=== PATIENT | female | born 1950 | race Caucasian/White ===

== ENCOUNTER 2019-03-14 15:21 | Inpatient (IN) ==
[2019-03-14] MEDS ORDERED: ASPIRIN PO ONE ×2 (15:32→20:03)
[2019-03-14 16:02] LABS: BASO# 0.06 X1000 (0.0-0.2); BASO% 0.6 % (0.0-0.8); EOS# 0.14 X1000 (0.0-0.7); EOS% 1.4 % (0.0-10.0); HEMATOCRIT 38.9 % (37.0-47.0); HEMOGLOBIN 13.4 g/dL (12.0-16.0); IMM GRAN# 0.19 X1000 (0.0-0.04); IMM GRAN% 1.9 % (0.0-0.5); LYMPH# 0.49 X1000 (1.2-3.4); LYMPH% 4.9 % (20.5-51.1); MCH 31.1 PG (27-31); MCHC 34.4 g/dL (33-37); MCV 90.3 FL (81-99); MONO# 1.04 X1000 (0.11-0.59); MONO% 10.5 % (1.7-9.3); MPV 11.6 FL (7.4-10.4); NEUT% 80.7 % (42.2-75.2); PLT 228 X1000 (130-400); RBC 4.31 XMIL (4.2-5.4); RDW 13.6 % (11.5-14.5); WBC 9.92 X1000 (4.8-10.8)
--- NOTE | 2019-03-14 16:09 | Diag Imaging Result Doc PS360 ---
EXAM: CHEST-2 VIEWS 03/14/2019 HISTORY: CHEST PAIN TECHNIQUE: PA and lateral chest COMMENT: The heart size and pulmonary vascularity are within normal limits. There is some ill-defined opacity present in the right lower lobe and linear opacity in the retrocardiac region of the left lower lobe. There are no previous studies available for comparison. IMPRESSION: Bibasilar atelectasis. Electronically signed by Justin Velasquez 03/14/2019 4:07 PM
[2019-03-14 16:17] LABS: INR 0.97; PROTIME 13.4 Seconds (11.0-16.0)
[2019-03-14 16:18] LABS: PTT 37.1 Seconds (22.3-41.8)
[2019-03-14 16:22] LABS: AGAP 11; ALBUMIN 3.6 g/dL (3.5-5.0); ALKALINE PHOSPHATASE 88 U/L (32-104); BUN 8 mg/dL (8-22); CALCIUM 8.7 mg/dL (8.8-10.2); CHLORIDE 95 mmol/L (98-107); CK PROFILE 13 U/L (24-173); COSMO 270; CREATININE 0.4 mg/dL (0.5-0.9); ESTIMATED GFR > 60; GLUCOSE 134 mg/dL (70-104); GOT 16 U/L (10-30); GPT 9 U/L (10-36); POTASSIUM 3.6 mmol/L (3.5-5.1); SODIUM 135 mmol/L (136-145); TCO2 29 mmol/L (25-35); TOTAL PROTEIN 7.1 g/dL (6.3-8.3)
--- NOTE | 2019-03-14 16:35 | EKG Report ---
Test Performed on : 03/14/2019 3:40:25 PM Test Reason : CHEST PAIN Blood Pressure : / mmHG Vent. Rate : 118 BPM Atrial Rate : 118 BPM P-R Int : 154 ms QRS Dur : 074 ms QT Int : 296 ms P-R-T Axes : 031 002 026 degrees QTc Int : 414 ms Sinus tachycardia. Cannot rule out Anterior infarct , age undetermined Abnormal ECG No previous ECGs available Unconfirmed Result
--- NOTE | 2019-03-14 18:30 | Diag Imaging Result Doc PS360 ---
EXAM: CT ANGIOGRM PULMONARY ARTERIES 03/14/2019 HISTORY: pain/tachycardia TECHNIQUE: This exam was performed using automated exposure control, adjustment of mA or kV according to patient size, and/or use of iterative reconstruction technique. COMMENT: There are no previous studies available for comparison. 3-D MIPS were performed. There are no filling defects in the pulmonary arteries. There are small bilateral pleural effusions. There are at atelectatic appearing opacities in the lung bases posteriorly. There is no evidence of significant adenopathy. There are cysts in the liver and left kidney which were present at the time the previous examination of the abdomen dated 03/07/2019. The basilar opacities were not present at that time. The pleural fluid collections were also not present. IMPRESSION: No evidence of pulmonary emboli. Bibasilar atelectasis versus pneumonia with small pleural effusions. Electronically signed by Justin Velasquez 03/14/2019 6:28 PM
--- NOTE | 2019-03-14 18:41 | PROVIDER DOCUMENTATION ---
This chart was entered by Александр Baez Scribe, acting as scribe for Derek Lord MD. HPI-Chest Pain <Derek Lord - Last Filed: 03/14/19 19:07> - General Source: patient, family (Patient is a 68 year old white female with history of kidney stones who presented to Dr. Lord with left sidedchest pain since yesterday and rapid heart rate. Dr. Lord ordered CTA of chest for elevated d- dimer that showed no PE but showed possible atelectasis vs pneumonia. Patient reports that she has not been eating or drinking properly due to nausea and anorexia. Serial cardiac enzymes were negative in ER.) <César Tobar - Last Filed: 03/14/19 20:05> - General Chief Complaint: Chest Pain Stated Complaint: CHEST PAIN Time Seen by Provider: 03/14/19 16:38 Allergies/Adverse Reactions: Patient Allergies Allergy/AdvReac Type Severity Reaction Status Date / Time No Known Allergies Allergy Verified 03/14/19 15:58 Home Medications: Home Medication List Medication Instructions Recorded Confirmed Last Taken Type Hydrocodone/APAP 5 mg/325 mg 1 - 2 tab PO Q6H PRN PRN #18 tab 03/07/19 03/14/19 Unknown Rx [[place]-5] Promethazine [Phenergan] 1 tab PO Q6H PRN PRN #18 tab 03/07/19 03/14/19 Unknown Rx Nitrofurantoin Macrocrystal 100 mg PO BID 03/14/19 03/14/19 Unknown History [Nitrofurantoin] Review of Systems - Adult - REVIEW OF SYSTEMS - ADULT Constitutional: reports: chills, fever Eyes: reports: no symptoms reported Ears, Nose, Mouth & Throat: reports: no symptoms reported Cardiovascular: denies: chest pain Respiratory: denies: cough, shortness of breath Gastrointestinal: reports: nausea Genitourinary: reports: see HPI Musculoskeletal: reports: muscle weakness Integumentary: denies: rash Neurological: reports: see HPI Psychiatric: reports: anxiety Endocrine: reports: no symptoms reported Hematologic/Lymphatic: reports: no symptoms reported Allergic/Immunologic: reports: no symptoms reported <César Tobar - Last Filed: 03/14/19 20:05> Past History - Adult - PAST MEDICAL HISTORY-ADULT Major Childhood Illnesses: reports: denies history Cardiovascular: reports: denies history Respiratory: reports: denies history Gastrointestinal: reports: denies history Obstetrical/Gynecological: reports: denies history Genitourinary: reports: denies history Musculoskeletal: reports: denies history Neurological: reports: denies history Endocrine/Immune: reports: denies history Other Conditions: reports: denies history - IMMUNIZATION STATUS Childhood Immunizations: See Nurse Assessment Flu Vaccine: See Nurse Assessment - FAMILY HISTORY Family History: reviewed, not pertinent <Derek Lord - Last Filed: 03/14/19 19:07> - PAST MEDICAL HISTORY-ADULT Review of Records: reports: Old Records Reviewed, Nursing Assessment Review, Medications Reviewed, Social history reviewed & non-contributory. <César Tobar - Last Filed: 03/14/19 20:05> Physical Exam-General - CONSTITUTIONAL General Appearance: alert, other (generalized weakness, dry mucous membranes, crusted nodular lesion over lower lip) - EYES Eyes: other (clear) - HEAD, EARS, NOSE, MOUTH & THROAT HENMT: other (dry mucous membranes) - NECK Neck: supple - RESPIRATORY Respiratory: lungs clear, decreased breath sounds - CARDIOVASCULAR Cardiovascular: tachycardia - GASTROINTESTINAL (ABDOMEN) Abdominal Exam: non tender, soft - MUSCULOSKELETAL Back Exam: no vertebral tenderness Extremity: other (no deformities) - SKIN Integumentary: other (decreased turgor) - PSYCHIATRIC Psych/Mental Status: anxious <César Tobar - Last Filed: 03/14/19 20:05> - HEART Score HEART Score: History: Slightly Suspicious HEART Score: ECG: Normal HEART Score: Age: > or = 65 Years HEART Score: Risk Factors for Atherosclerotic Disease: 1 or 2 Risk Factors HEART Score: Troponin: < or = Normal Limit Total HEART Score:: 3 <César Tobar - Last Filed: 03/14/19 20:05> Progress - PLAN OF CARE/RESULTS Result Diagrams: 03/14/19 15:50 03/14/19 15:50 - EKG 1 Time of EKG reading by physician:: 15:41 EKG Read and Signed by:: Derek Lord EKG Interpretation (*Must complete 3 of following elements*): Abnormal (Sinus tachycardia; Cannot rule out anterior infarct, age undetermined) Rate: 118 Rhythm: Sinus tachycardia Falls: normal QRS: normal VA Interval: normal ST Wave: normal <Derek Lord - Last Filed: 03/14/19 19:07> - PLAN OF CARE/RESULTS Result Diagrams: 03/14/19 15:50 03/14/19 15:50 - CONSULTS/PCP/HOSPITALIST Notification #1 *Consult/PCP/Hospitalist*: Dr. Nova Time Discussed: 19:55 Consult Disposition: Admit <César Tobar - Last Filed: 03/14/19 20:05> - PLAN OF CARE/RESULTS Progress/Plan/Lab Results: Vital Signs - 8 hr 03/14/19 15:24 Temperature 99.7 F H Pulse Rate 125 H Respiratory Rate 20 Blood Pressure 120/77 O2 Sat by Pulse Oximetry 93 L Laboratory Results - last 24 hr 03/14/19 03/14/19 03/14/19 15:50 15:50 15:50 WBC 9.92 RBC 4.31 Hgb 13.4 Hct 38.9 MCV 90.3 MCH 31.1 H MCHC 34.4 RDW Std Deviation 13.6 Plt Count 228 MPV 11.6 H Immature Gran % (Auto) 1.9 H Neut % (Auto) 80.7 H Lymph % (Auto) 4.9 L [place] % (Auto) 10.5 H Eos % (Auto) 1.4 Baso % (Auto) 0.6 Immature Gran # (Auto) 0.19 H Neut # (Auto) 8.00 H Lymph # (Auto) 0.49 L [place] # (Auto) 1.04 H Eos # (Auto) 0.14 Baso # (Auto) 0.06 PT INR PTT (Actin FS) D-Dimer, Quantitative Specimen Type Sample Site pH pCO2 pO2 HCO3 Base Excess Oxyhemoglobin ABG O2 Sat (Calculated) ABG O2 Saturation ABG Carboxyhemoglobin ABG Methemoglobin Ricky Test A-a O2 Difference Total Hemoglobin Lactate Blood Gas Modality FiO2 % Sodium 135 L Potassium 3.6 Chloride 95 L Carbon Dioxide 29 Anion Gap 11 BUN 8 Creatinine 0.4 L Estimated GFR/1.73 m2 > 60 BUN/Creatinine Ratio 20 Glucose 134 H Calculated Osmolality 270 Calcium 8.7 L Total Bilirubin 0.30 AST 16 ALT 9 L Alkaline Phosphatase 88 Creatine Kinase 13 L Troponin T Tsp-A-Whpgardmdkd Pept 169 Total Protein 7.1 Albumin 3.6 Globulin 4.0 Albumin/Globulin Ratio 1.0 TSH Urine Color Urine Clarity Urine pH Ur Specific [place] Urine Protein Urine Ketones Urine Blood Urine Nitrite Urine Bilirubin Urine Urobilinogen Urine WBC Urine Glucose 03/14/19 03/14/19 03/14/19 15:50 15:50 15:50 WBC RBC Hgb Hct MCV MCH MCHC RDW Std Deviation Plt Count MPV Immature Gran % (Auto) Neut % (Auto) Lymph % (Auto) [place] % (Auto) Eos % (Auto) Baso % (Auto) Immature Gran # (Auto) Neut # (Auto) Lymph # (Auto) [place] # (Auto) Eos # (Auto) Baso # (Auto) PT 13.4 INR 0.97 PTT (Actin FS) 37.1 D-Dimer, Quantitative Specimen Type Sample Site pH pCO2 pO2 HCO3 Base Excess Oxyhemoglobin ABG O2 Sat (Calculated) ABG O2 Saturation ABG Carboxyhemoglobin ABG Methemoglobin Ricky Test A-a O2 Difference Total Hemoglobin Lactate Blood Gas Modality FiO2 % Sodium Potassium Chloride Carbon Dioxide Anion Gap BUN Creatinine Estimated GFR/1.73 m2 BUN/Creatinine Ratio Glucose Calculated Osmolality Calcium Total Bilirubin AST ALT Alkaline Phosphatase Creatine Kinase Troponin T < 0.010 Zig-N-Pocyfrrbipt Pept Total Protein Albumin Globulin Albumin/Globulin Ratio TSH 2.05 Urine Color Urine Clarity Urine pH Ur Specific [place] Urine Protein Urine Ketones Urine Blood Urine Nitrite Urine Bilirubin Urine Urobilinogen Urine WBC Urine Glucose 03/14/19 03/14/19 03/14/19 16:39 17:39 17:39 WBC RBC Hgb Hct MCV MCH MCHC RDW Std Deviation Plt Count MPV Immature Gran % (Auto) Neut % (Auto) Lymph % (Auto) [place] % (Auto) Eos % (Auto) Baso % (Auto) Immature Gran # (Auto) Neut # (Auto) Lymph # (Auto) [place] # (Auto) Eos # (Auto) Baso # (Auto) PT INR PTT (Actin FS) D-Dimer, Quantitative 2.15 H Specimen Type Sample Site pH pCO2 pO2 HCO3 Base Excess Oxyhemoglobin ABG O2 Sat (Calculated) ABG O2 Saturation ABG Carboxyhemoglobin ABG Methemoglobin Ricky Test A-a O2 Difference Total Hemoglobin Lactate Blood Gas Modality FiO2 % Sodium Potassium Chloride Carbon Dioxide Anion Gap BUN Creatinine Estimated GFR/1.73 m2 BUN/Creatinine Ratio Glucose Calculated Osmolality Calcium Total Bilirubin AST ALT Alkaline Phosphatase Creatine Kinase 51 D Troponin T < 0.010 Sjr-M-Omihqugfobf Pept Total Protein Albumin Globulin Albumin/Globulin Ratio TSH Urine Color Urine Clarity Urine pH Ur Specific [place] Urine Protein Urine Ketones Urine Blood Urine Nitrite Urine Bilirubin Urine Urobilinogen Urine WBC Urine Glucose 03/14/19 03/14/19 18:35 19:36 WBC RBC Hgb Hct MCV MCH MCHC RDW Std Deviation Plt Count MPV Immature Gran % (Auto) Neut % (Auto) Lymph % (Auto) [place] % (Auto) Eos % (Auto) Baso % (Auto) Immature Gran # (Auto) Neut # (Auto) Lymph # (Auto) [place] # (Auto) Eos # (Auto) Baso # (Auto) PT INR PTT (Actin FS) D-Dimer, Quantitative Specimen Type ARTERIAL Sample Site R BRACHIAL pH 7.50 H pCO2 40 pO2 62 HCO3 30.6 H Base Excess 7.4 H Oxyhemoglobin 93.1 L ABG O2 Sat (Calculated) 17.5 ABG O2 Saturation 96.7 ABG Carboxyhemoglobin 2.20 ABG Methemoglobin 1.5 Ricky Test NO A-a O2 Difference 38.0 Total Hemoglobin 13.4 Lactate 0.50 Blood Gas Modality ROOM AIR FiO2 % 21.0 Sodium Potassium Chloride Carbon Dioxide Anion Gap BUN Creatinine Estimated GFR/1.73 m2 BUN/Creatinine Ratio Glucose Calculated Osmolality Calcium Total Bilirubin AST ALT Alkaline Phosphatase Creatine Kinase Troponin T Zvp-D-Ewnajckejeb Pept Total Protein Albumin Globulin Albumin/Globulin Ratio TSH Urine Color YELLOW Urine Clarity CLEAR Urine pH 7.0 Ur Specific [place] 1.005 Urine Protein TRACE A Urine Ketones 2+(Moderate) A Urine Blood 2+ A Urine Nitrite NEGATIVE Urine Bilirubin NEGATIVE Urine Urobilinogen NORMAL Urine WBC TRACE A Urine Glucose NEGATIVE Orders Category Date Time Status Admit - [facility] Routine AdmDCTranf 03/14/19 19:59 Active Cardiac Monitoring DIRECTED Care 03/14/19 15:32 Active Oxygen Therapy- ED Nursing DIRECTED Care 03/14/19 15:32 Active Resuscitation Status Routine Care 03/14/19 19:59 Ordered Saline Loc NOW Care 03/14/19 15:32 Active Vital Signs Order Q 4-HR ASSESS Care 03/14/19 19:59 Active Z-Document. for Tele Applied ORDERED Care 03/14/19 20:01 Active Heart Healthy Diet Diet 03/14/19 20:02 Active CHEST-2 VIEWS [RAD] Stat Exams 03/14/19 15:[address] ANGIOGRM PULMONARY ARTERIES [CT] Stat Exams 03/14/19 17:21 Completed ABG [RESP] Routine Lab 03/14/19 18:35 Completed BLOOD CULTURE [BLDCUL] Stat Lab 03/14/19 19:05 Ordered CBC WITH ELECTRONIC DIFF [HEME] Stat Lab 03/14/19 15:50 Completed CK PROFILE [SP CHEM] Stat Lab 03/14/19 15:50 Completed CK PROFILE [SP CHEM] Stat Lab 03/14/19 17:39 Completed COMPREHENSIVE METABOLIC PANEL [CHEM] Stat Lab 03/14/19 15:50 Completed D-DIMER [COAG] Stat Lab 03/14/19 16:39 Completed PRO B-NATRIURETIC PEPTIDE Stat Lab 03/14/19 15:50 Completed PROTIME WITH INR [COAG] Stat Lab 03/14/19 15:50 Completed PTT [COAG] Stat Lab 03/14/19 15:50 Completed TROPONIN T Q4HR Lab 03/14/19 21:00 Ordered TROPONIN T Q4HR Lab 03/15/19 01:00 Ordered TROPONIN T Q4HR Lab 03/15/19 05:00 Ordered TROPONIN T Stat Lab 03/14/19 15:50 Completed TROPONIN T Stat Lab 03/14/19 17:39 Completed TSH Stat Lab 03/14/19 15:[address] W/POSS RFLX CULT [URINALYSIS] Stat Lab 03/14/19 19:36 Results 0.9% Sodium Chloride Inj [Ns] 1,000 ml Med 03/14/19 19:59 Active IV 125 mls/hr 0.9% Sodium Chloride Inj [Ns] 1,000 ml Med 03/14/19 19:50 Active IV 999 mls/hr Aspirin Med 03/14/19 20:03 Discontinued 324 mg PO NOW ONE Aspirin Med 03/14/19 15:32 Discontinued 325 mg PO NOW ONE CefTRIAXONE [Rocephin] 1 gm Med 03/14/19 19:31 Discontinued 0.9% Sodium Chloride Inj [Ns] 50 ml IV NOW Ondansetron [Zofran] Med 03/14/19 19:59 Ordered 4 mg IV Q4H PRN PRN CP/SOB/Palp >45 yrs of Age Stat Oth 03/14/19 15:32 Ordered Oxygen Device Routine Oth 03/14/19 20:01 Active Telemetry [OM.EQ] Routine Oth 03/14/19 19:59 Active EKG [EKG] Stat Ther 03/14/19 15:32 Draft Transfer/Admit Order [TRANSFER] Routine Transfer 03/14/19 20:02 Ordered Departure <Derek Lord - Last Filed: 03/14/19 19:07> - Departure Date of Disposition Decision: 03/14/19 Time of Disposition Decision: 19:58 Certified Medical Emergency: Emergent - Critical Care Note This patient required my direct & personal management of CC.: No <César Tobar - Last Filed: 03/14/19 20:05> - Departure DIAGNOSIS: Tachycardia, Volume depletion, Anorexia Chest pain Qualifiers: Chest pain type: unspecified Qualified Code(s): R07.9 - Chest pain, unspecified Disposition: ADMITTED INPATIENT 09 Condition: Stable Referrals and Follow-Ups: None,PCP [Primary Care Provider] - Attestation - Physician/ POWER Attestation Patient care was provided by Advanced Practice Provider:: No The physician spent face to face time with patient:: Yes Advanced Practice Provider documentation review:: Supervising physician onsite and consulted in the evaluation and care of this patient. The physician did have a face to face encounter with the patient. <César Tobar - Last Filed: 03/14/19 20:05> This chart was documented by the indicated scribe, (Александр Baez, Scribe) and accurately reflects the services I performed and decisions made by me, Derek Lord MD, as attested by the provider's signature.
[2019-03-14 18:56] LABS: BE 7.4 mmoll (-3.0-3.0); BLOOD TYPE ARTERIAL; HCO3-(ACT) 30.6 mmoll (20.0-26.0); METHB 1.5 % (0.0-1.5); O2(CT) 17.5 mL/dL (15.0-23.0); O2HB 93.1 % (95.0-99.0); PCO2(98.6) 40 mmHg (35-45); PO2(98.6) 62 mmHg (60-100); SAMPLE BLOOD; SAO2 96.7 % (95.0-100.0); THB 13.4 g/dL (11.5-17.4)
[2019-03-14 18:58] LABS: ALLEN TEST NO; MODALITY ROOM AIR
[2019-03-14] MEDS ORDERED: ROCEPHIN 1 GM in NS 50 ML IV ONE (19:31)
[2019-03-14 19:50] LABS: BILIRUBIN URINE NEGATIVE (NEGATIVE); BLOOD URINE 2+ (NEGATIVE); GLUCOSE URINE NEGATIVE (NEGATIVE); KETONE URINE 2+(Moderate) mg/dL (NEGATIVE); LEUKOCYTES URINE TRACE (NEGATIVE); NITRITE URINE NEGATIVE (NEGATIVE); PROTEIN URINE TRACE mg/dL (NEGATIVE); SP GRAVITY URINE 1.005; UROBILINOGEN URINE NORMAL
[2019-03-14] MEDS ORDERED: NS 1,000 ML IV ONE ×2 (19:50→19:59)
[2019-03-14 19:51] LABS: CLARITY CLEAR (CLEAR); COLOR YELLOW
[2019-03-14] MEDS ORDERED: ZOFRAN IV PRN (19:59)
[2019-03-14 20:06] LABS: URINE RBC TNTC /HPF (<10); URINE SOURCE CLEAN CATCH; URINE WBC <10 /HPF (<10)
[2019-03-14 20:07] LABS: URINE BACTERIA 2+ /HFP; URINE CAST NONE SEEN /LPF; URINE CRYSTAL NONE SEEN /HPF; URINE EPITHELIAL CELLS >10 /HPF (<10); URINE YEAST NONE SEEN /HPF
[2019-03-14] MEDS ORDERED: BLISTEX MEDICATED BERRY LIP BALM TOP ONE (23:25)
[2019-03-15] MEDS ORDERED: TORADOL IV ONE (10:10)
[2019-03-15] MEDS: ZITHROMAX PO SCH (10:31)
[2019-03-15] MEDS: MERREM 1 GM in NS 50 ML IV SCH ×2 (10:31→18:02)
--- NOTE | 2019-03-15 11:35 | Diag Imaging Result Doc PS360 ---
CT RENAL STONE SEARCH - 03/15/2019 INDICATION: left UVJ stone COMPARISON: 03/07/2019 FINDINGS: The obstructing left UVJ stone is no longer present. The left hydronephrosis has resolved. There is a stable tiny 1 mm stone in the left renal collecting system. The right kidney is normal. No bowel obstruction or inflammation. Urinary bladder, uterus, and rectum are normal. Minimal diverticulosis of the sigmoid colon. IMPRESSION: Obstructing left UVJ stone is no longer present. No hydronephrosis. Stable tiny 1 mm left renal stone. This exam was performed using automated exposure control, adjustment of mA or kV according to patient size, and/or use of iterative reconstruction technique Electronically signed by Farzad Jamil 03/15/2019 11:32 AM
--- NOTE | 2019-03-15 13:53 | HISTORY AND PHYSICAL ---
CHIEF COMPLAINT: Left-sided chest pain and rapid heart rate. HISTORY OF PRESENT ILLNESS: This is a 68-year-old female with a history of breast cancer status post lumpectomy, who presented to the emergency room complaining of some midsternal and left-sided chest pain with tachycardia, and some shortness of breath on exertion. She stated these symptoms have been present for the last 24 to 48 hours. She was found to have an elevated D-dimer in the emergency room prompting a CT angiogram of the pulmonary arteries, which revealed no evidence of pulmonary emboli, but bibasilar atelectasis versus pneumonia. Blood cultures were obtained in the emergency room. She was given Rocephin and admitted for further evaluation and treatment. Of note, in reviewing the patient's past history, she was evaluated in the emergency room on March 07 for flank pain. She was found to have a 3.5 mm left UVJ stone with moderate left hydronephrosis. She has had no follow-up. PAST MEDICAL HISTORY: Breast cancer with lumpectomy. PAST SURGICAL HISTORY: Lumpectomy and ablation, tubal ligation. SOCIAL HISTORY: She denies alcohol, tobacco, or illicit drug use. She is . ALLERGIES: No known drug allergies. HOME MEDICATIONS: None. REVIEW OF SYSTEMS: Discussed with patient with pertinent positives stated in the HPI. She denied any syncope or dizziness, any productive cough, any PND, orthopnea, any vomiting, diarrhea, constipation, black or bloody vomitus or stools, any hematuria, dysuria, frequency, urgency. PHYSICAL EXAMINATION: GENERAL: This is a 68-year-old female, who is sitting up in the bed in no distress. VITAL SIGNS: Blood pressure is 111/54, heart rate of 96, respirations 18, temperature is 98.3 degrees with room air saturations 98%. EYES: Pupils equal, round, react to light. EOMS are intact. Sclerae anicteric. HENT: Head is normocephalic, atraumatic. Mucous membranes are dry. NECK: Supple with trachea midline. CARDIOVASCULAR: Regular rate and rhythm. S1 and S2 are appreciated. She has no lower extremity edema. Calves are nontender bilateral with peripheral pulses palpable x4 extremities. PULMONARY: Breath sounds are clear. No increased work of breathing noted. Chest rises and falls symmetric with respiration. Chest wall is nontender to palpation. GASTROINTESTINAL: Abdomen is soft, nontender, nondistended. Bowel sounds in all 4 quadrants. GENITOURINARY: She has no CVA or suprapubic tenderness. SKIN: Warm and dry. LABORATORY DATA: WBC is 9.9 with hemoglobin 13.4, hematocrit 38.9, and platelets 228. INR 0.97 with D-dimer 2.15. Sodium 135, potassium 3.6. BUN 8, creatinine 0.4 with a glucose of 134. Troponins are negative on multiple occasions. Urinalysis reveals 2+ blood with too numerous to count red blood cells, less than 10 microscopic white blood cells, and greater than 10 epithelial cells consistent with contamination. MICROBIOLOGY: Blood cultures and urine culture are pending. X-RAYS: 1. Chest x-ray revealed bibasilar atelectasis. 2. Pulmonary arteriogram revealed no evidence of pulmonary emboli, bibasilar atelectasis versus pneumonia with small pleural effusions. ASSESSMENT: 1. Bibasilar atelectasis/pneumonia. Blood cultures were drawn in the emergency room. She was given Rocephin. We will continue Rocephin and add azithromycin. Any further antibiotics will be culture driven. Will order incentive spirometer. 2. A 3.5 mm right ureterovesical junction stone with moderate hydronephrosis per computed tomography scan 03/07/2019. 3. Extended spectrum beta lactamase-positive Escherichia coli urinary tract infection per urine culture 03/12/2019 susceptible to amikacin, imipenem, and nitrofurantoin. 4. Elevated D-dimer with a computed tomography angiography pulmonary negative for pulmonary embolism. PLAN: The patient has been admitted to the medical-surgical floor and placed on telemetry which will continue. We will start IV coverage of Merrem covering for the ESBL positive E coli UTI. We will add azithromycin, start incentive spirometer. We will continue telemetry. We will use Lovenox for DVT prophylaxis and Prilosec for GI prophylaxis. We will continue with IV hydration. Any further antibiotics will be culture driven. Further treatments pending hospital course. Dictated by LENCHO Horan for Lobito Nova MD cc: LENCHO Horan MD
--- NOTE | 2019-03-15 19:15 | HISTORY AND PHYSICAL ---
ADDENDUM: Patient seen examined by myself. Full note dictated and discussed with nurse practitioner. The patient has a history of kidney stones. She is unaware if she passed it. She presented with nausea, vomiting and abdominal pain. CT of the abdomen is pending; we will follow. Follow her heart rates, give her IV fluids. Please see full note. cc: Lobito Nova MD
[2019-03-15] MEDS ORDERED: TYLENOL PO PRN (22:10)
[2019-03-16] MEDS: MERREM 1 GM in NS 50 ML IV SCH ×3 (02:09→18:25)
[2019-03-16] MEDS: PRILOSEC PO SCH (06:16)
[2019-03-16 06:53] LABS: BASO# 0.05 X1000 (0.0-0.2); BASO% 0.8 % (0.0-0.8); EOS# 0.19 X1000 (0.0-0.7); HEMOGLOBIN 11.5 g/dL (12.0-16.0); IMM GRAN# 0.09 X1000 (0.0-0.04); IMM GRAN% 1.4 % (0.0-0.5); LYMPH# 0.93 X1000 (1.2-3.4); LYMPH% 14.9 % (20.5-51.1); MCH 30.3 PG (27-31); MCHC 33.8 g/dL (33-37); MCV 89.7 FL (81-99); MONO# 0.79 X1000 (0.11-0.59); MONO% 12.7 % (1.7-9.3); MPV 11.7 FL (7.4-10.4); NEUT# 4.19 X1000 (1.4-6.5); NEUT% 67.2 % (42.2-75.2); PLT 316 X1000 (130-400); RBC 3.79 XMIL (4.2-5.4); RDW 13.6 % (11.5-14.5); WBC 6.24 X1000 (4.8-10.8)
[2019-03-16 07:03] LABS: AGAP 11; BUN 5 mg/dL (8-22); CALCIUM 8.5 mg/dL (8.8-10.2); CHLORIDE 103 mmol/L (98-107); COSMO 274; CREATININE 0.3 mg/dL (0.5-0.9); ESTIMATED GFR > 60; GLUCOSE 125 mg/dL (70-104); POTASSIUM 3.6 mmol/L (3.5-5.1); SODIUM 138 mmol/L (136-145); TCO2 24 mmol/L (25-35)
[2019-03-16] MEDS ORDERED: PHENERGAN PO PRN (08:47)
[2019-03-16] MEDS ORDERED: NORCO-5 PO PRN (08:47)
[2019-03-16] MEDS: ZITHROMAX PO SCH (10:06)
[2019-03-16] MEDS: LOVENOX SUBQ SCH (10:07)
[2019-03-16] MEDS ORDERED: MOTRIN PO PRN (10:41)
[2019-03-16] MEDS: VALTREX PO SCH ×2 (13:28→21:29)
--- NOTE | 2019-03-16 14:09 | PROGRESS NOTE ---
DATE: 03/16/2019 SUBJECTIVE: Patient notes that she is starting to feel better. She denies any fevers or chills. Denies any chest pains currently. Denies nausea, vomiting. PHYSICAL EXAMINATION: Temperature 98.8 degrees, pulse 102, respiratory 20, BP 121/47.General: Patient is awake, alert. She is in no distress. She is lying quietly in the bed. Her does 95+ percent of all the talking and answered questions for her. HEENT: Normocephalic. Neck: Supple. Cardiovascular: Regular rate. Chest: Clear. Abdomen: Soft, nondistended. Extremities: Moves all extremities. ASSESSMENT: 1. Urinary tract infection growing gram-negative rods. 2. History of renal stone with obstruction although appears to be clear last CT does have a small 1 mm stone remaining. 3. Elevated D-dimer with a negative CT. Ultrasound currently pending. 4. Headache. We will restart her p.r.n. Advil. 5. Herpes simplex fever blister. PLAN: We will continue patient on hospital, continue antibiotics until culture and sensitivity returns. Continue Valtrex. Further orders as needed. cc: Lobito Nova MD MTDD
--- NOTE | 2019-03-16 16:18 | Extremity Venous Study ---
EXAM: Venous U/S Bilateral Legs 03/16/2019 HISTORY: ddimer TECHNIQUE: Venous ultrasound of the lower extremities, with compression and color Doppler flow COMMENT: The deep veins of the lower extremities are compressible with normal color Doppler flow. There is no evidence of superficial venous thrombosis. No abnormal fluid collections are present. IMPRESSION: No evidence of deep venous thrombosis. Electronically signed by Justin Velasquez 03/16/2019 4:16 PM
[2019-03-17] MEDS: MERREM 1 GM in NS 50 ML IV SCH ×2 (02:25→09:31)
[2019-03-17] MEDS: PRILOSEC PO SCH (06:01)
[2019-03-17 06:40] LABS: BASO# 0.09 X1000 (0.0-0.2); BASO% 1.7 % (0.0-0.8); EOS# 0.14 X1000 (0.0-0.7); EOS% 2.6 % (0.0-10.0); HEMATOCRIT 35.3 % (37.0-47.0); IMM GRAN# 0.09 X1000 (0.0-0.04); IMM GRAN% 1.7 % (0.0-0.5); LYMPH# 1.05 X1000 (1.2-3.4); LYMPH% 19.7 % (20.5-51.1); MCH 30.5 PG (27-31); MCV 89.8 FL (81-99); MONO% 9.4 % (1.7-9.3); MPV 11.5 FL (7.4-10.4); NEUT# 3.45 X1000 (1.4-6.5); NEUT% 64.9 % (42.2-75.2); PLT 364 X1000 (130-400); RBC 3.93 XMIL (4.2-5.4); RDW 13.6 % (11.5-14.5); WBC 5.32 X1000 (4.8-10.8)
[2019-03-17] MEDS ORDERED: DIFLUCAN PO ONE (08:22)
[2019-03-17] MEDS ORDERED: MACROBID PO SCH (09:00)
[2019-03-17] MEDS ORDERED: CULTURELLE PO SCH (09:00)
[2019-03-17] MEDS: LOVENOX SUBQ SCH (09:30)
[2019-03-17] MEDS: VALTREX PO SCH (09:30)
[2019-03-17 14:32] VITALS: BP 110/52
[2019-03-17] MEDS ORDERED: IMODIUM PO PRN (14:37)
[2019-03-17] MEDS ORDERED: IMODIUM PO ONE (14:37)
--- NOTE | 2019-03-17 15:45 | ECHO REPORT ---
ORDER DATE: 03/17/2019 STUDY: 2D echocardiogram. INTERPRETING PHYSICIAN: Dr. Ovallse CLINICAL INDICATIONS: Patient with supraventricular tachycardia. REQUESTING PHYSICIAN: Dr. Nova, [facility] doctor. M-MODE MEASUREMENTS: Left ventricle end diastole: 4.4 cm. Left ventricle end systole: 2.7 cm. Posterior wall: 0.6 cm. Interventricular septum: 0.6 cm. Left atrium: 2.9 cm. Aortic root: 2.8 cm. SUMMARY OF 2-DIMENSIONAL IMAGIN. The left ventricular function is normal. Ejection fraction is estimated at 60% to 65%. There is no wall motion abnormality noted. The atria appear to be normal. 2. Right ventricle appears to be normal. 3. Mitral valve looks normal. Color flow mapping is unremarkable. 4. Pulsed wave Doppler of mitral inflow shows mild reversal of the E and the A ratio. Ratio is 0.7. 5. Tissue Doppler of septal and lateral mitral annulus averages 7 cm. 6. There is no diastolic dysfunction. 7. Pulmonary venous flow appears to be normal. 8. The aortic valve looks normal. Color flow mapping is unremarkable. 9. The pulmonic valve is normal. Color flow mapping is unremarkable. 10.Tricuspid valve shows a mild degree of regurgitation. 11.The pulmonary pressure is estimated at 34 mmHg. 12.There is no pericardial effusion, mass, and no thrombus. Clinical correlation recommended. cc: MD Lobito Andrew MD
--- NOTE | 2019-03-17 18:39 | DISCHARGE SUMMARY ---
ADMISSION DATE: 03/14/2019 DISCHARGE DATE: 03/17/2019 ADMISSION DIAGNOSES: 1. Bibasilar atelectasis versus pneumonia. Received Rocephin and azithromycin in the emergency room. 2. Hydronephrosis with a 3.5 mm right ureterovesical junction stone. 3. Extended spectrum beta lactamase positive Escherichia coli urinary tract infection. 4. Elevated D dimer with negative pulmonary embolism or deep venous thrombosis. 5. Tachycardia and chest pain. DISCHARGE DIAGNOSES: 1. Escherichia coli extended spectrum beta lactamase positive urinary tract infection. It is sensitive to Macrobid. Will go home with that. 2. History of renal stone obstruction. 3. Elevated D dimer. 4. Headache. 5. Herpes simplex fever blister, on Valtrex. CONSULTATIONS: None. SURGERIES AND PROCEDURES: None. HOSPITAL COURSE: Cyndi Moss is a 68-year-old female with a medical history of breast cancer and lumpectomy. She came into the emergency department with complaints of left-sided chest pain and rapid heart rate along with shortness of breath on exertion. They had been bothering her. She had been having these symptoms for at least 24 to 48 hours prior to presentation. She did have an elevated D dimer but was ruled out for any DVT or PE. Did show atelectasis versus pneumonia and she got Rocephin and azithromycin for that. Urinalysis came back with a culture positive for ESBL positive E coli, which is sensitive to Macrobid, so she will be sent home with that. But, when she was in the hospital she was started on meropenem for about two days, also on isolation due to it being ESBL positive. She also developed a fever blister which she was initiated on Valtrex for. Echocardiogram did not show anything significant. Her heart rate, the highest it appears to be from documentation is 125 on an EKG, 118, so it did not really require any management. It decreased on its own. It was likely secondary to response to infection. She was chest pain free. While she was here she had a renal CT repeated which only showed a stable, tiny 1 mm left renal stone without any hydronephrosis. DISCHARGE VITAL SIGNS: Temperature 98.4, heart rate 98, respiratory rate 16, blood pressure 110/52, O2 saturation 96% on room air. DISCHARGE LABORATORY DATA: White blood cells 5000, hemoglobin 12, hematocrit 35, platelet count 364,000. BMP yesterday, sodium 138, potassium 3.6, BUN 5, creatinine 0.3, glucose 125, calcium 8.5. C difficile negative. Microbiology: Blood cultures negative. The urine culture was positive for E coli and it was also ESBL positive, only sensitive to amikacin, imipenem, and nitrofurantoin. It was resistant to gentamicin, Levaquin, tobramycin, and Bactrim. PERTINENT IMAGING: On 03/14/2019, chest x-ray with bibasilar atelectasis. Pulmonary arteriogram with no evidence of pulmonary emboli. It did show bibasilar atelectasis versus pneumonia with small pleural effusion. On 03/15/[address] with obstructing left UVJ stone is no longer present, no hydronephrosis, stable, tiny 1 mm left renal stone. On 03/16/2019 lower extremity Doppler negative for DVT. On 03/17/2019 echocardiogram with ejection fraction of 60% to 65%. There is no diastolic dysfunction. Pulmonary pressure was 34 mmHg. DIAGNOSTIC STUDIES: EKG showed sinus tachycardia, rate 118, QTC 414. DISCHARGE MEDICATIONS: 1. Lactobacillus one p.o. twice a day. 2. Imodium as needed. 3. Macrobid 100 mg p.o. twice daily for at least five days. 4. Phenergan 25 mg p.o. every six hours p.r.n. 5. Prilosec 40 mg p.o. daily. 6. Valtrex 1000 mg p.o. twice daily for a total of seven days. DISCHARGE DIET: Heart healthy. DISCHARGE ACTIVITY: As tolerated. DISCHARGE PHYSICIAN FOLLOWUP: Primary care provider. DISCHARGE INSTRUCTIONS: Take Valtrex for fever blister. Take Macrobid for UTI and take it with food. If your condition changes, contact your physician and/or return to the emergency department. Changes may include, but are not limited to, shortness of breath, increased fatigue, excessive bleeding, unexplained weight loss or gain, unimaginable pain, signs or symptoms of infection. DISCHARGE DISPOSITION: Home. Dictated by LENCHO Catalan for Lobito Nova MD cc: LENCHO Catalan MD
--- NOTE | 2019-03-18 22:04 | DISCHARGE SUMMARY ---
ADMISSION DATE: 03/14/2019 DISCHARGE DATE: 03/17/2019 ADDENDUM: Patient seen and examined by myself. Full note dictated and discussed with nurse practitioner. On discharge, the patient is awake, alert. She is in no acute distress. She was admitted and diagnosed with a urinary tract infection, subsequently grew Escherichia coli. She did have some elevated heart rates while in the hospital that remained fairly consistent. We checked an echocardiogram, which was normal. We will discharge her home. She will follow up outpatient. cc: Lobito Nova MD
== END 2019-03-17 17:32 | disposition home or self-care (01) | DRG 690 ==
LOC: P.MEDSURG 15:21 → P.ED 15:21 → OBSVTOIN 20:50 → P.MEDSURG 21:23
PROVIDERS: ATTEND Family Medicine
CPT/HCPCS: 36415; 71020; 71046; 71275; 74176; 80048; 80053; 81001; 82550; 82805; 83880; 84443; 84484; 85025; 85379; 85610; 85730; 87040; 87077; 87088; 87186; 87324; 93005; 93306; 93970; 94761; 94799; 96361; 96374; 99285; A9270; J0696; J1650; J1885; J2185; J2405; J7030; Q9967